=== PATIENT | male | born 1970 | race Caucasian/White ===

== ENCOUNTER 2021-01-28 17:27 | Inpatient (IN) | payer MEDICARE, SELFPAY ==
[~2021-01-28 17:27] MED LIST: Iopamidol-370 76% 500 ML 1 ML ONE
[2021-01-28] MEDS ORDERED: Nitroglycerin 0.4 MG TAB 1 EACH ONE (17:36)
[2021-01-28] MEDS ORDERED: Magnesium 2 GM/50 ML BAG (IN WATER) ONE (17:36)
[2021-01-28 17:47] LABS: Actual Bicarbonate (HCO3a) 54.5 mEq/L (22-28); Analyzer IN Cardio ER; Base Excess (BEa) 19.4 mEq/L (-2.0 to +3.0); Calcium, Ionized (arterial) 1.23 mmol/L (1.12-1.30); Carboxyhemoglobin (COHb) 1.4 gm% (0.0-3.0); Hemoglobin (Hb) 14.7 g/dL (14.0-18.0); O2 Tension (PaO2), arterial 68.1 mmHg (80.0-100.0); Potassium - ABG Lab 4.69 mmol/L (3.70-5.30)
[2021-01-28 17:48] LABS: CO2 Tension 137.8 mmHg (35.0-45.0); Puncture Site RRA; pH, Arterial 7.22 (7.35-7.45)
[2021-01-28] MEDS ORDERED: Ketamine 50 MG/ML (10ML VIAL) ONE (17:53)
[2021-01-28] MEDS ORDERED: Rocuronium Bromide 10 MG/ML (10ML VIAL) ONE (17:53)
[2021-01-28 18:13] LABS: #Eosinphils 0.1 thou/uL (0.0-0.7); #Lymphocytes 0.9 thou/uL (1.20-3.40); #Monocytes 0.9 thou/uL (0.11-0.59); #Neutrophils 8.9 thou/uL (1.40-6.50); %Basophils 0.2 % (0.0-1.0); %Eosinophils 0.7 % (0.0-10.0); %Monocytes 8.6 % (0.0-10.0); %Neutrophils 82.5 % (42.0-75.0); Mean Corpuscular HGB CONC 29.8 g/dL (32.0-36.0); Mean Corpuscular Hemoglobin 27.5 pg (27.0-31.0); Mean Corpuscular Volume 92.2 fL (78.0-98.0); Mean Platelet Volume 8.7 fL (7.4-10.4); Platelet Count 145 thou/uL (130-400); White Blood Cell (WBC) Count 10.7 thou/uL (4.8-10.8)
[2021-01-28 18:16] LABS: ALT (SGPT) 33 U/L (8-55); AST (SGOT) 25 U/L (5-34); Albumin 4.4 g/dL (3.5-5.0); Alkaline Phosphatase 93 U/L (40-110); BUN (Urea Nitrogen) 21 mg/dL (8.9-20.6); CK (CPK) 38 U/L (30-200); Calc. Creatinine Clearance 0 mL/min (70-130); Calcium 10.2 mg/dL (7.8-10.44); Globulin 3.5 g/dL (2.4-3.5); Glucose 96 mg/dL (70-105); Protein, Total 7.9 g/dL (6.0-8.3)
[2021-01-28 18:25] LABS: Anion Gap 22 mmol/L (10-20); Chloride 81 mmol/L (98-107); Potassium 4.7 mmol/L (3.5-5.1); Sodium 144 mmol/L (136-145)
[2021-01-28] MEDS ORDERED: Albuterol Sulfate 2.5 mg/3 ml Neb ONE (18:29)
[2021-01-28] MEDS ORDERED: cefTRIAXone\\ROCEPHIN 2 GM VIAL ONE (18:31)
[2021-01-28] MEDS ORDERED: Azithromycin 500 MG VIAL ONE (18:31)
[2021-01-28 18:36] LABS: Carbon Dioxide 46 mmol/L (22-29)
[2021-01-28 18:44] LABS: Actual Bicarbonate (HCO3a) 44.1 mEq/L (22-28); Analyzer IN Cardio ER; Base Excess (BEa) 16.7 mEq/L (-2.0 to +3.0); Calcium, Ionized (arterial) 1.16 mmol/L (1.12-1.30); Carboxyhemoglobin (COHb) 1.2 gm% (0.0-3.0); O2 Tension (PaO2), arterial 184.1 mmHg (80.0-100.0); Potassium - ABG Lab 4.63 mmol/L (3.70-5.30); pH, Arterial 7.46 (7.35-7.45)
[2021-01-28 18:44] LABS: Bacteria/HPF None Seen HPF (None Seen); Bilirubin Negative (Negative); Blood, Urine 1+ (Negative); Clarity Clear (Clear); Glucose, Urine (Dipstick) Normal (Negative); Ketone, Urine 150 mg/dL (Negative); Leukocyte Negative Leu/uL (Negative); Nitrite Negative (Negative); Protein, Urine (Dipstick) 300 mg/dL (Neg-Trace); Specific Gravity, Urine 1.022 (1.002-1.036); Squamous Epithelial None Seen HPF (0-3); Urobilinogen Normal mg/dL (Less than 2)
[2021-01-28] MEDS ORDERED: fentaNYL Citrate/PF 2,000 MCG in Sodium Chloride 0.9% 60 ML IV SCH (19:00)
[2021-01-28 19:11] LABS: CO2 Tension 64.1 mmHg (35.0-45.0)
[2021-01-28 19:12] LABS: ALV-art Gradient 163.575 mmHg (0-20); Puncture Site LRA
[2021-01-28] MEDS ORDERED: Lorazepam 2 MG/ML VIAL ONE (19:25)
[2021-01-28 19:26] LABS: SARS-CoV-2 NAA Rapid Test Not Detected (NotDetected)
[2021-01-28] MEDS ORDERED: Morphine 2 MG/ML VIAL ONE (20:01)
[2021-01-28] MEDS ORDERED: Propofol 1,000 MG/100 ML VIAL IV ONE (20:09)
[2021-01-28 21:16] LABS: Troponin I 0.027 ng/mL (< 0.028)
[2021-01-28] MEDS ORDERED: Ondansetron PF 4 MG/2 ML Vial IVP PRN (21:27)
[2021-01-28] MEDS ORDERED: Acetaminophen 325 MG Suppository ONE (21:28)
[2021-01-28] MEDS ORDERED: Acetaminophen 650 MG Suppository ONE (21:28)
[2021-01-28] MEDS ORDERED: Midazolam HCl 5 mg/ml Vial ONE (21:30)
[2021-01-28] MEDS ORDERED: Albuterol Sulfate 2.5 mg/3 ml Neb NEB PRN (21:34)
[2021-01-28 21:54] LABS: Anion Gap 24 mmol/L (10-20); BUN (Urea Nitrogen) 20 mg/dL (8.4-25.7); Calc. Creatinine Clearance 0 mL/min (70-130); Calcium 9.1 mg/dL (7.8-10.44); Carbon Dioxide 33 mmol/L (22-29); Chloride 90 mmol/L (98-107); Glucose 116 mg/dL (70-105); Potassium 4.8 mmol/L (3.5-5.1); Sodium 142 mmol/L (136-145)
[2021-01-28] MEDS ORDERED: Propofol BOLUS 1,000 MG/100 ML VIAL IV PRN (23:00)
[2021-01-28] MEDS ORDERED: Fentanyl BOLUS 250 ML IVPB PRN (23:00)
[2021-01-28] MEDS ORDERED: DISCONTINUE PREVIOUS NARCOTIC PAIN MEDICATIONS AND BENZODIAZEPINES FS SCH (23:00)
[2021-01-28] MEDS ORDERED: Morphine 2 MG/ML VIAL SLOW IVP PRN (23:00)
[2021-01-28] MEDS ORDERED: VANCOMYCIN 1.75 GM/350 ML BAG 1.75 GM in Premix Bag 1 BAG IVPB SCH (23:30)
[2021-01-28] MEDS: methylPREDNISolone Sod Succ 40 MG VIAL IVP SCH (23:37)
[2021-01-28] MEDS ORDERED: Vancomycin 1.5 GRAM/300 ML BAG 1.5 GM in Premix Bag 1 BAG IVPB SCH (23:59)
[2021-01-29 00:33] LABS: Troponin I 0.033 ng/mL (< 0.028)
[2021-01-29] MEDS: Propofol 1,000 MG/100 ML VIAL IV PRN ×5 (01:05→22:14)
[2021-01-29] MEDS ORDERED: Fentanyl CADD 100 ML ONE ×3 (02:19→20:23)
[2021-01-29] MEDS: Fentanyl CADD 100 ML IV SCH ×2 (02:23→20:50)
[2021-01-29 04:49] LABS: #Lymphocytes 0.4 thou/uL (1.20-3.40); #Monocytes 0.3 thou/uL (0.11-0.59); #Neutrophils 5.5 thou/uL (1.40-6.50); %Eosinophils 0.1 % (0.0-10.0); %Lymphocytes 6.5 % (21.0-51.0); %Monocytes 5.1 % (0.0-10.0); %Neutrophils 88.3 % (42.0-75.0); Hemoglobin 11.4 g/dL (14.0-18.0); Mean Corpuscular HGB CONC 29.8 g/dL (32.0-36.0); Mean Corpuscular Hemoglobin 27.1 pg (27.0-31.0); Mean Corpuscular Volume 90.9 fL (78.0-98.0); Mean Platelet Volume 9.2 fL (7.4-10.4); Platelet Count 110 thou/uL (130-400); Platelet Morphology Comment Appears Decreased; RBC Distribution Width 11.8 % (11.5-14.5); Red Blood Cell (RBC) Count 4.19 mill/uL (4.70-6.10); White Blood Cell (WBC) Count 6.2 thou/uL (4.8-10.8)
[2021-01-29] MEDS: methylPREDNISolone Sod Succ 40 MG VIAL IVP SCH ×4 (05:59→23:14)
[2021-01-29] MEDS ORDERED: Furosemide 20 MG/2 ML VIAL SLOW IVP SCH (06:00)
[2021-01-29] MEDS: Acetaminophen 325 MG TAB PO PRN (06:13)
[2021-01-29 06:54] LABS: BUN (Urea Nitrogen) 19 mg/dL (8.4-25.7); Calc. Creatinine Clearance 135 mL/min (70-130); Calcium 9.1 mg/dL (7.8-10.44); Glucose 128 mg/dL (70-105)
[2021-01-29 07:03] LABS: Anion Gap 16 mmol/L (10-20); Carbon Dioxide 38 mmol/L (22-29); Chloride 91 mmol/L (98-107); Potassium 3.7 mmol/L (3.5-5.1); Sodium 141 mmol/L (136-145)
[2021-01-29] MEDS: Lorazepam 2 MG/ML VIAL SLOW IVP PRN ×6 (07:27→22:14)
[2021-01-29] MEDS ORDERED: Famotidine 20 MG TAB PO SCH (09:00)
[2021-01-29] MEDS ORDERED: Electrolyte Replacement Protocol 1 EACH FS PRN (09:37)
[2021-01-29] MEDS: Vecuronium 10 MG VIAL IVP PRN ×4 (10:08→22:14)
[2021-01-29] MEDS: Sodium Chloride 0.9% 1,000 ML IV SCH (10:08)
[2021-01-29] MEDS: Cefepime 1 GM in Sodium Chloride 0.9% 100 ML IVPB SCH ×2 (12:05→23:14)
[2021-01-29] MEDS: Vancomycin 1.5 GRAM/300 ML BAG 1.5 GM in Premix Bag 1 BAG IVPB SCH ×2 (12:34→23:14)
[2021-01-29] MEDS ORDERED: cefTRIAXone\\ROCEPHIN 2 GM in Sodium Chloride 0.9% 100 ML IVPB SCH (18:00)
[2021-01-29] MEDS: Budesonide 0.5 MG/2 ML NEB NEB SCH (18:41)
[2021-01-29] MEDS ORDERED: Azithromycin 500 MG in Sodium Chloride 0.9% 250 ML 250 ML IVPB SCH (20:00)
[2021-01-29] MEDS: Carvedilol 3.125 MG TAB PO SCH (21:01)
[2021-01-30] MEDS: Vecuronium 10 MG VIAL IVP PRN (01:48)
[2021-01-30] MEDS: Lorazepam 2 MG/ML VIAL SLOW IVP PRN ×2 (01:48→04:45)
[2021-01-30] MEDS: Sodium Chloride 0.9% 1,000 ML IV SCH ×3 (01:56→22:03)
[2021-01-30] MEDS: Propofol 1,000 MG/100 ML VIAL IV PRN ×5 (03:30→22:03)
[2021-01-30 04:28] LABS: #Lymphocytes 0.3 thou/uL (1.20-3.40); #Monocytes 0.7 thou/uL (0.11-0.59); #Neutrophils 11.3 thou/uL (1.40-6.50); %Eosinophils 0.1 % (0.0-10.0); %Lymphocytes 2.1 % (21.0-51.0); %Monocytes 5.5 % (0.0-10.0); %Neutrophils 92.2 % (42.0-75.0); Mean Corpuscular HGB CONC 30.6 g/dL (32.0-36.0); Mean Corpuscular Hemoglobin 27.1 pg (27.0-31.0); Mean Corpuscular Volume 88.7 fL (78.0-98.0); Mean Platelet Volume 9.2 fL (7.4-10.4); Platelet Count 108 thou/uL (130-400); RBC Distribution Width 12.1 % (11.5-14.5); White Blood Cell (WBC) Count 12.2 thou/uL (4.8-10.8)
[2021-01-30 05:01] LABS: BUN (Urea Nitrogen) 17 mg/dL (8.4-25.7); Calc. Creatinine Clearance 153 mL/min (70-130); Calcium 9.2 mg/dL (7.8-10.44); Glucose 119 mg/dL (70-105)
[2021-01-30 05:10] LABS: Anion Gap 12 mmol/L (10-20); Carbon Dioxide 38 mmol/L (22-29); Chloride 96 mmol/L (98-107); Potassium 3.3 mmol/L (3.5-5.1); Sodium 143 mmol/L (136-145)
[2021-01-30] MEDS: methylPREDNISolone Sod Succ 40 MG VIAL IVP SCH ×3 (06:02→17:46)
[2021-01-30] MEDS ORDERED: Fentanyl CADD 100 ML ONE (06:15)
[2021-01-30] MEDS: Fentanyl CADD 100 ML IV SCH ×2 (06:31→17:14)
[2021-01-30] MEDS: Potassium Chloride 20 MEQ in Premix Bag 1 BAG IVPB SCH ×2 (06:36→08:13)
[2021-01-30] MEDS: Budesonide 0.5 MG/2 ML NEB NEB SCH ×2 (07:10→18:30)
[2021-01-30 07:22] LABS: Actual Bicarbonate (HCO3a) 35.8 mEq/L (22-28); Base Excess (BEa) 11.6 mEq/L (-2.0 to +3.0); CO2 Tension 44.6 mmHg (35.0-45.0); Carboxyhemoglobin (COHb) 1.3 gm% (0.0-3.0); Hemoglobin (Hb) 12.5 g/dL (14.0-18.0); O2 Tension (PaO2), arterial 73.8 mmHg (80.0-100.0); Potassium - ABG Lab 3.36 mmol/L (3.70-5.30); pH, Arterial 7.52 (7.35-7.45)
[2021-01-30 07:51] LABS: Puncture Site RRA
[2021-01-30] MEDS: Carvedilol 3.125 MG TAB PO SCH ×2 (08:13→20:29)
[2021-01-30] MEDS ORDERED: Pancrelipase DR 12,000 1 CAP FS PRN (10:15)
[2021-01-30] MEDS ORDERED: Sodium Bicarbonate Tab 325 MG TAB PER TUBE PRN (10:15)
[2021-01-30] MEDS: Pantoprazole 40 MG GRANULES PACKET PO SCH ×2 (11:18→20:29)
[2021-01-30] MEDS: Cefepime 1 GM in Sodium Chloride 0.9% 100 ML IVPB SCH (11:30)
[2021-01-30] MEDS ORDERED: Furosemide 40 MG/4 ML VIAL SLOW IVP SCH (11:30)
[2021-01-30] MEDS: Vancomycin 1.5 GRAM/300 ML BAG 1.5 GM in Premix Bag 1 BAG IVPB SCH (11:44)
[2021-01-30] MEDS: FLUoxetine HCl 20 MG/5 ML UDCUP PER TUBE SCH (11:55)
[2021-01-30] MEDS ORDERED: Potassium Chloride 20 MEQ in Premix Bag 1 BAG IVPB SCH (14:15)
[2021-01-31] MEDS: Cefepime 1 GM in Sodium Chloride 0.9% 100 ML IVPB SCH (00:05)
[2021-01-31] MEDS: methylPREDNISolone Sod Succ 40 MG VIAL IVP SCH ×5 (00:06→23:54)
[2021-01-31] MEDS: Vancomycin 1.5 GRAM/300 ML BAG 1.5 GM in Premix Bag 1 BAG IVPB SCH (00:17)
[2021-01-31] MEDS ORDERED: Fentanyl CADD 100 ML ONE ×2 (01:35→19:53)
[2021-01-31] MEDS: Propofol 1,000 MG/100 ML VIAL IV PRN ×4 (02:39→23:14)
[2021-01-31 04:20] LABS: #Lymphocytes 0.3 thou/uL (1.20-3.40); #Monocytes 0.5 thou/uL (0.11-0.59); #Neutrophils 12.4 thou/uL (1.40-6.50); %Basophils 0.1 % (0.0-1.0); %Eosinophils 0.1 % (0.0-10.0); %Monocytes 3.5 % (0.0-10.0); %Neutrophils 94.4 % (42.0-75.0); Hemoglobin 11.8 g/dL (14.0-18.0); Mean Corpuscular HGB CONC 30.6 g/dL (32.0-36.0); Mean Corpuscular Hemoglobin 27.2 pg (27.0-31.0); Mean Platelet Volume 9.4 fL (7.4-10.4); Platelet Count 110 thou/uL (130-400); RBC Distribution Width 12.5 % (11.5-14.5); Red Blood Cell (RBC) Count 4.35 mill/uL (4.70-6.10); White Blood Cell (WBC) Count 13.1 thou/uL (4.8-10.8)
[2021-01-31 04:27] LABS: BUN (Urea Nitrogen) 23 mg/dL (8.4-25.7); Calc. Creatinine Clearance 169 mL/min (70-130); Calcium 9.1 mg/dL (7.8-10.44); Glucose 118 mg/dL (70-105)
[2021-01-31 04:36] LABS: Anion Gap 14 mmol/L (10-20); Carbon Dioxide 36 mmol/L (22-29); Chloride 97 mmol/L (98-107); Potassium 4.2 mmol/L (3.5-5.1); Sodium 143 mmol/L (136-145)
[2021-01-31 07:15] LABS: Actual Bicarbonate (HCO3a) 40.2 mEq/L (22-28); Base Excess (BEa) 11.5 mEq/L (-2.0 to +3.0); Calcium, Ionized (arterial) 1.25 mmol/L (1.12-1.30); Hemoglobin (Hb) 12.7 g/dL (14.0-18.0); O2 Tension (PaO2), arterial 75.6 mmHg (80.0-100.0); Potassium - ABG Lab 4.13 mmol/L (3.70-5.30); pH, Arterial 7.35 (7.35-7.45)
[2021-01-31] MEDS: Budesonide 0.5 MG/2 ML NEB NEB SCH ×2 (07:18→19:36)
[2021-01-31 07:19] LABS: Vancomycin, Trough 11.5 ug/mL
[2021-01-31 07:20] LABS: CO2 Tension 75.3 mmHg (35.0-45.0)
[2021-01-31 07:21] LABS: ALV-art Gradient 115.475 mmHg (0-20); Puncture Site RRA
[2021-01-31] MEDS: Pantoprazole 40 MG GRANULES PACKET PO SCH (08:40)
[2021-01-31] MEDS: Carvedilol 3.125 MG TAB PO SCH ×2 (08:40→20:07)
[2021-01-31] MEDS: FLUoxetine HCl 20 MG/5 ML UDCUP PER TUBE SCH (08:41)
[2021-01-31] MEDS: cefTRIAXone\\ROCEPHIN 1 GM in Sodium Chloride 0.9% 100 ML IVPB SCH (10:22)
[2021-01-31] MEDS: Bacteriostatic Water 30 ML VIAL FS PRN (11:28)
[2021-01-31] MEDS ORDERED: Saccharomyces boulardii 250 MG CAP PER TUBE SCH ×2 (11:45→12:00)
[2021-01-31] MEDS: Saccharomyces boulardii 250 MG CAP PER TUBE SCH (12:00)
[2021-01-31] MEDS ORDERED: VANCOMYCIN 1.75 GM/350 ML BAG 1.75 GM in Premix Bag 1 BAG IVPB SCH (12:00)
[2021-01-31] MEDS: Lorazepam 2 MG/ML VIAL SLOW IVP PRN (23:13)
[2021-02-01 04:38] LABS: BUN (Urea Nitrogen) 28 mg/dL (8.4-25.7); Calc. Creatinine Clearance 166 mL/min (70-130); Calcium 9.1 mg/dL (7.8-10.44); Glucose 124 mg/dL (70-105)
[2021-02-01 04:48] LABS: Anion Gap 15 mmol/L (10-20); Carbon Dioxide 34 mmol/L (22-29); Chloride 99 mmol/L (98-107); Potassium 4.6 mmol/L (3.5-5.1); Sodium 143 mmol/L (136-145)
[2021-02-01 04:57] LABS: #Lymphocytes 0.3 thou/uL (1.20-3.40); #Monocytes 0.4 thou/uL (0.11-0.59); #Neutrophils 9.9 thou/uL (1.40-6.50); %Eosinophils 0.1 % (0.0-10.0); %Lymphocytes 2.5 % (21.0-51.0); %Monocytes 3.6 % (0.0-10.0); %Neutrophils 93.8 % (42.0-75.0); Hemoglobin 11.5 g/dL (14.0-18.0); Mean Corpuscular Hemoglobin 26.8 pg (27.0-31.0); Mean Corpuscular Volume 89.5 fL (78.0-98.0); Mean Platelet Volume 9.1 fL (7.4-10.4); Platelet Count 117 thou/uL (130-400); Platelet Morphology Comment Appears Decreased; RBC Distribution Width 12.6 % (11.5-14.5); RBC Morphology Normal; White Blood Cell (WBC) Count 10.6 thou/uL (4.8-10.8)
[2021-02-01] MEDS: methylPREDNISolone Sod Succ 40 MG VIAL IVP SCH ×4 (06:19→23:09)
[2021-02-01] MEDS: Budesonide 0.5 MG/2 ML NEB NEB SCH ×2 (07:22→17:31)
[2021-02-01 07:24] LABS: Actual Bicarbonate (HCO3a) 40.6 mEq/L (22-28); Base Excess (BEa) 12.1 mEq/L (-2.0 to +3.0); Calcium, Ionized (arterial) 1.26 mmol/L (1.12-1.30); Carboxyhemoglobin (COHb) 0.7 gm% (0.0-3.0); Hemoglobin (Hb) 12.3 g/dL (14.0-18.0); O2 Tension (PaO2), arterial 81.8 mmHg (80.0-100.0); Potassium - ABG Lab 4.55 mmol/L (3.70-5.30); pH, Arterial 7.35 (7.35-7.45)
[2021-02-01 07:39] LABS: CO2 Tension 74.6 mmHg (35.0-45.0); Puncture Site RRA
[2021-02-01] MEDS ORDERED: Pantoprazole 40 MG GRANULES PACKET PO SCH (09:00)
[2021-02-01] MEDS ORDERED: DC Sedation Protocol FS ONE (09:09)
[2021-02-01] MEDS: Sodium Chloride 0.9% 1,000 ML IV SCH ×2 (09:49→21:10)
[2021-02-01] MEDS: Carvedilol 3.125 MG TAB PO SCH ×2 (09:49→20:55)
[2021-02-01] MEDS: FLUoxetine HCl 20 MG CAP PO SCH (09:49)
[2021-02-01] MEDS: FLUoxetine HCl 20 MG/5 ML UDCUP PER TUBE SCH (09:57)
[2021-02-01] MEDS: cefTRIAXone\\ROCEPHIN 1 GM in Sodium Chloride 0.9% 100 ML IVPB SCH (10:19)
[2021-02-01] MEDS: Bacteriostatic Water 30 ML VIAL FS PRN ×2 (12:27→18:14)
[2021-02-01] MEDS: Saccharomyces boulardii 250 MG CAP PER TUBE SCH (12:27)
[2021-02-01] MEDS ORDERED: Haloperidol Lactate 5 MG/ML VIAL SLOW IVP PRN (16:29)
[2021-02-01] MEDS ORDERED: Morphine 4 MG/ML VIAL ONE (16:37)
[2021-02-01] MEDS ORDERED: Midazolam HCl 2 mg/2 ml Vial ONE (16:37)
[2021-02-01] MEDS ORDERED: Propofol 1,000 MG/100 ML VIAL IV ONE (16:45)
[2021-02-01 17:22] LABS: Actual Bicarbonate (HCO3a) 43.7 mEq/L (22-28); Base Excess (BEa) 11.8 mEq/L (-2.0 to +3.0); Calcium, Ionized (arterial) 1.28 mmol/L (1.12-1.30); Carboxyhemoglobin (COHb) 0.9 gm% (0.0-3.0); O2 Tension (PaO2), arterial 73.2 mmHg (80.0-100.0); Potassium - ABG Lab 4.66 mmol/L (3.70-5.30)
[2021-02-01 17:25] LABS: Actual Bicarbonate (HCO3a) 41.1 mEq/L (22-28); Base Excess (BEa) 7.1 mEq/L (-2.0 to +3.0); CO2 Tension 122.3 mmHg (35.0-45.0); Calcium, Ionized (arterial) 1.31 mmol/L (1.12-1.30); Hemoglobin (Hb) 14.7 g/dL (14.0-18.0); O2 Tension (PaO2), arterial 89.8 mmHg (80.0-100.0); Potassium - ABG Lab 4.63 mmol/L (3.70-5.30); Puncture Site RBA; pH, Arterial 7.14 (7.35-7.45)
[2021-02-01 17:27] LABS: CO2 Tension 102.5 mmHg (35.0-45.0); Puncture Site RRA; pH, Arterial 7.25 (7.35-7.45)
[2021-02-01 17:28] LABS: ALV-art Gradient 42.525 mmHg (0-20)
[2021-02-01 17:28] LABS: ALV-art Gradient 155.175 mmHg (0-20)
[2021-02-01] MEDS ORDERED: Propofol BOLUS 1,000 MG/100 ML VIAL IV PRN (18:00)
[2021-02-01] MEDS: Cefepime 1 GM in Sodium Chloride 0.9% 100 ML IVPB SCH (20:54)
[2021-02-01] MEDS: AcetaZOLAMIDE 250 MG TAB PO SCH (20:55)
[2021-02-01] MEDS: traZODone HCl 50 MG TAB PO SCH (20:55)
[2021-02-01] MEDS: Propofol 1,000 MG/100 ML VIAL IV PRN (23:09)
[2021-02-02 03:54] LABS: #Lymphocytes 0.4 thou/uL (1.20-3.40); #Monocytes 0.6 thou/uL (0.11-0.59); #Neutrophils 7.2 thou/uL (1.40-6.50); %Lymphocytes 4.3 % (21.0-51.0); %Monocytes 7.6 % (0.0-10.0); %Neutrophils 88.1 % (42.0-75.0); Hemoglobin 11.7 g/dL (14.0-18.0); Mean Corpuscular HGB CONC 30.3 g/dL (32.0-36.0); Mean Corpuscular Hemoglobin 26.8 pg (27.0-31.0); Mean Corpuscular Volume 88.4 fL (78.0-98.0); Mean Platelet Volume 8.9 fL (7.4-10.4); Platelet Count 127 thou/uL (130-400); RBC Distribution Width 12.9 % (11.5-14.5); Red Blood Cell (RBC) Count 4.37 mill/uL (4.70-6.10); White Blood Cell (WBC) Count 8.1 thou/uL (4.8-10.8)
[2021-02-02] MEDS: Propofol 1,000 MG/100 ML VIAL IV PRN ×3 (03:58→19:29)
[2021-02-02 04:28] LABS: Anion Gap 10 mmol/L (10-20); BUN (Urea Nitrogen) 29 mg/dL (8.4-25.7); Calc. Creatinine Clearance 0 mL/min (70-130); Calcium 9.3 mg/dL (7.8-10.44); Carbon Dioxide 33 mmol/L (22-29); Chloride 103 mmol/L (98-107); Glucose 113 mg/dL (70-105); Potassium 3.9 mmol/L (3.5-5.1); Sodium 142 mmol/L (136-145)
[2021-02-02] MEDS: methylPREDNISolone Sod Succ 40 MG VIAL IVP SCH ×4 (05:15→23:53)
[2021-02-02 08:10] LABS: Actual Bicarbonate (HCO3a) 27.7 mEq/L (22-28); CO2 Tension 38.5 mmHg (35.0-45.0); Calcium, Ionized (arterial) 1.25 mmol/L (1.12-1.30); Carboxyhemoglobin (COHb) 0.5 gm% (0.0-3.0); Hemoglobin (Hb) 12.3 g/dL (14.0-18.0); O2 Tension (PaO2), arterial 83.8 mmHg (80.0-100.0); Potassium - ABG Lab 3.94 mmol/L (3.70-5.30); pH, Arterial 7.48 (7.35-7.45)
[2021-02-02] MEDS: Budesonide 0.5 MG/2 ML NEB NEB SCH (08:11)
[2021-02-02 08:14] LABS: ALV-art Gradient 153.275 mmHg (0-20); Puncture Site RRA
[2021-02-02] MEDS: Cefepime 1 GM in Sodium Chloride 0.9% 100 ML IVPB SCH ×2 (09:56→21:20)
[2021-02-02] MEDS: FLUoxetine HCl 20 MG CAP PO SCH (09:56)
[2021-02-02] MEDS: Carvedilol 3.125 MG TAB PO SCH ×2 (09:57→21:21)
[2021-02-02] MEDS: AcetaZOLAMIDE 250 MG TAB PO SCH ×2 (10:07→21:21)
[2021-02-02] MEDS: Saccharomyces boulardii 250 MG CAP PER TUBE SCH (12:28)
[2021-02-02] MEDS: Sodium Chloride 0.9% 1,000 ML IV SCH (19:27)
[2021-02-02] MEDS: traZODone HCl 50 MG TAB PO SCH (21:21)
[2021-02-03] MEDS: Propofol 1,000 MG/100 ML VIAL IV PRN (03:13)
[2021-02-03 03:53] LABS: #Lymphocytes 0.3 thou/uL (1.20-3.40); #Monocytes 0.7 thou/uL (0.11-0.59); #Neutrophils 9.5 thou/uL (1.40-6.50); %Basophils 0.2 % (0.0-1.0); %Eosinophils 0.1 % (0.0-10.0); %Lymphocytes 2.6 % (21.0-51.0); %Monocytes 6.2 % (0.0-10.0); Hemoglobin 12.4 g/dL (14.0-18.0); Mean Corpuscular HGB CONC 30.8 g/dL (32.0-36.0); Mean Corpuscular Hemoglobin 26.7 pg (27.0-31.0); Mean Corpuscular Volume 86.7 fL (78.0-98.0); Mean Platelet Volume 8.5 fL (7.4-10.4); Platelet Count 133 thou/uL (130-400); RBC Distribution Width 13.1 % (11.5-14.5); Red Blood Cell (RBC) Count 4.66 mill/uL (4.70-6.10); White Blood Cell (WBC) Count 10.5 thou/uL (4.8-10.8)
[2021-02-03 04:03] LABS: Anion Gap 10 mmol/L (10-20); BUN (Urea Nitrogen) 27 mg/dL (8.4-25.7); Calc. Creatinine Clearance 152 mL/min (70-130); Calcium 9.3 mg/dL (7.8-10.44); Carbon Dioxide 29 mmol/L (22-29); Chloride 106 mmol/L (98-107); Glucose 142 mg/dL (70-105); Potassium 4.1 mmol/L (3.5-5.1); Sodium 141 mmol/L (136-145)
[2021-02-03] MEDS: methylPREDNISolone Sod Succ 40 MG VIAL IVP SCH ×3 (05:20→17:39)
[2021-02-03] MEDS ORDERED: hydrALAZINE 20 MG/ML VIAL SLOW IVP PRN (07:25)
[2021-02-03 07:56] LABS: Actual Bicarbonate (HCO3a) 27.4 mEq/L (22-28); Base Excess (BEa) 1.6 mEq/L (-2.0 to +3.0); CO2 Tension 47.7 mmHg (35.0-45.0); Carboxyhemoglobin (COHb) 0.9 gm% (0.0-3.0); Hemoglobin (Hb) 13.4 g/dL (14.0-18.0); O2 Tension (PaO2), arterial 83.9 mmHg (80.0-100.0); Potassium - ABG Lab 4.18 mmol/L (3.70-5.30); pH, Arterial 7.38 (7.35-7.45)
[2021-02-03 07:57] LABS: ALV-art Gradient 106.025 mmHg (0-20); Puncture Site RRA
[2021-02-03] MEDS: Cefepime 1 GM in Sodium Chloride 0.9% 100 ML IVPB SCH ×2 (09:45→20:19)
[2021-02-03] MEDS: Lorazepam 2 MG/ML VIAL SLOW IVP PRN (09:50)
[2021-02-03] MEDS: AcetaZOLAMIDE 250 MG TAB PO SCH (09:51)
[2021-02-03] MEDS: Carvedilol 3.125 MG TAB PO SCH ×2 (09:52→20:20)
[2021-02-03] MEDS: Pantoprazole 40 MG GRANULES PACKET PO SCH (09:52)
[2021-02-03] MEDS: FLUoxetine HCl 20 MG CAP PO SCH (09:52)
[2021-02-03] MEDS: Saccharomyces boulardii 250 MG CAP PER TUBE SCH (13:06)
[2021-02-03] MEDS: hydrOXYzine 25 MG TAB PO PRN (13:44)
[2021-02-03] MEDS: Sodium Chloride 0.9% 1,000 ML IV SCH (15:15)
[2021-02-03] MEDS: traZODone HCl 50 MG TAB PO SCH (20:20)
[2021-02-04] MEDS: methylPREDNISolone Sod Succ 40 MG VIAL IVP SCH ×2 (01:00→06:34)
[2021-02-04 04:03] LABS: #Lymphocytes 0.4 thou/uL (1.20-3.40); #Monocytes 1.4 thou/uL (0.11-0.59); #Neutrophils 11.6 thou/uL (1.40-6.50); %Basophils 0.1 % (0.0-1.0); %Eosinophils 0.2 % (0.0-10.0); %Monocytes 10.6 % (0.0-10.0); %Neutrophils 86.2 % (42.0-75.0); Hemoglobin 12.9 g/dL (14.0-18.0); Mean Corpuscular HGB CONC 30.7 g/dL (32.0-36.0); Mean Corpuscular Hemoglobin 26.3 pg (27.0-31.0); Mean Corpuscular Volume 85.8 fL (78.0-98.0); Mean Platelet Volume 8.6 fL (7.4-10.4); Platelet Count 170 thou/uL (130-400); RBC Distribution Width 13.5 % (11.5-14.5); White Blood Cell (WBC) Count 13.5 thou/uL (4.8-10.8)
[2021-02-04 04:24] LABS: Anion Gap 11 mmol/L (10-20); BUN (Urea Nitrogen) 28 mg/dL (8.4-25.7); Calc. Creatinine Clearance 165 mL/min (70-130); Calcium 9.2 mg/dL (7.8-10.44); Carbon Dioxide 24 mmol/L (22-29); Chloride 108 mmol/L (98-107); Glucose 115 mg/dL (70-105); Potassium 3.8 mmol/L (3.5-5.1); Sodium 139 mmol/L (136-145)
[2021-02-04] MEDS: Lorazepam 2 MG/ML VIAL SLOW IVP PRN ×4 (04:36→22:02)
[2021-02-04 06:49] LABS: Actual Bicarbonate (HCO3a) 23.6 mEq/L (22-28); Base Excess (BEa) -0.8 mEq/L (-2.0 to +3.0); CO2 Tension 38.4 mmHg (35.0-45.0); Calcium, Ionized (arterial) 1.27 mmol/L (1.12-1.30); Carboxyhemoglobin (COHb) 0.8 gm% (0.0-3.0); Hemoglobin (Hb) 14.3 g/dL (14.0-18.0); O2 Tension (PaO2), arterial 75.6 mmHg (80.0-100.0); Potassium - ABG Lab 3.84 mmol/L (3.70-5.30); pH, Arterial 7.41 (7.35-7.45)
[2021-02-04 07:09] LABS: Puncture Site RRA
[2021-02-04] MEDS: FLUoxetine HCl 20 MG CAP PO SCH (09:00)
[2021-02-04] MEDS: Carvedilol 3.125 MG TAB PO SCH ×2 (09:00→20:08)
[2021-02-04] MEDS: Pantoprazole 40 MG GRANULES PACKET PO SCH (09:00)
[2021-02-04] MEDS: AcetaZOLAMIDE 250 MG TAB PO SCH (09:00)
[2021-02-04] MEDS: Cefepime 1 GM in Sodium Chloride 0.9% 100 ML IVPB SCH ×2 (09:01→20:07)
[2021-02-04] MEDS ORDERED: Mineral Oil ENEMA PR SCH (11:15)
[2021-02-04] MEDS: Saccharomyces boulardii 250 MG CAP PER TUBE SCH (11:56)
[2021-02-04] MEDS: Furosemide 40 MG/4 ML VIAL SLOW IVP SCH (13:26)
[2021-02-04] MEDS: Potassium Bicarbonate/Cit Ac 20 MEQ TAB PO SCH (16:13)
[2021-02-04] MEDS: traZODone HCl 50 MG TAB PO SCH (20:08)
[2021-02-04] MEDS: Docusate Sodium 100 MG/10 ML UDCUP PO SCH (20:08)
[2021-02-05] MEDS: Lorazepam 2 MG/ML VIAL SLOW IVP PRN (02:17)
[2021-02-05] MEDS: Propofol 1,000 MG/100 ML VIAL IV PRN (03:27)
[2021-02-05 04:16] LABS: #Eosinphils 0.1 thou/uL (0.0-0.7); #Lymphocytes 0.3 thou/uL (1.20-3.40); #Neutrophils 10.7 thou/uL (1.40-6.50); %Eosinophils 0.6 % (0.0-10.0); %Lymphocytes 2.7 % (21.0-51.0); %Monocytes 7.8 % (0.0-10.0); %Neutrophils 88.9 % (42.0-75.0); Hemoglobin 12.9 g/dL (14.0-18.0); Mean Corpuscular HGB CONC 30.4 g/dL (32.0-36.0); Mean Corpuscular Hemoglobin 26.4 pg (27.0-31.0); Mean Corpuscular Volume 86.7 fL (78.0-98.0); Platelet Count 147 thou/uL (130-400); RBC Distribution Width 13.8 % (11.5-14.5); Red Blood Cell (RBC) Count 4.91 mill/uL (4.70-6.10); White Blood Cell (WBC) Count 12.1 thou/uL (4.8-10.8)
[2021-02-05 04:34] LABS: Anion Gap 12 mmol/L (10-20); BUN (Urea Nitrogen) 37 mg/dL (8.4-25.7); Calc. Creatinine Clearance 150 mL/min (70-130); Calcium 9.1 mg/dL (7.8-10.44); Carbon Dioxide 27 mmol/L (22-29); Chloride 107 mmol/L (98-107); Glucose 88 mg/dL (70-105); Potassium 3.6 mmol/L (3.5-5.1); Sodium 142 mmol/L (136-145)
[2021-02-05] MEDS: Acetaminophen 325 MG TAB PO PRN (05:12)
[2021-02-05] MEDS: Furosemide 40 MG/4 ML VIAL SLOW IVP SCH ×2 (05:12→13:40)
[2021-02-05 08:04] LABS: Actual Bicarbonate (HCO3a) 27.9 mEq/L (22-28); Analyzer IN Cardio ER; Base Excess (BEa) 2.2 mEq/L (-2.0 to +3.0); CO2 Tension 47.5 mmHg (35.0-45.0); Calcium, Ionized (arterial) 1.26 mmol/L (1.12-1.30); Carboxyhemoglobin (COHb) 1.3 gm% (0.0-3.0); Hemoglobin (Hb) 13.6 g/dL (14.0-18.0); O2 Tension (PaO2), arterial 62.8 mmHg (80.0-100.0); pH, Arterial 7.39 (7.35-7.45)
[2021-02-05 08:11] LABS: Puncture Site LRA
[2021-02-05 08:12] LABS: ALV-art Gradient 91.725 mmHg (0-20)
[2021-02-05] MEDS: Potassium Bicarbonate/Cit Ac 20 MEQ TAB PO SCH ×2 (08:19→16:42)
[2021-02-05] MEDS: predniSONE 20 MG TAB PO SCH (08:19)
[2021-02-05] MEDS: Magnesium Oxide 400 MG TAB PO SCH (08:33)
[2021-02-05] MEDS: Carvedilol 3.125 MG TAB PO SCH ×2 (08:33→21:39)
[2021-02-05] MEDS: FLUoxetine HCl 20 MG CAP PO SCH (08:33)
[2021-02-05] MEDS: Cefepime 1 GM in Sodium Chloride 0.9% 100 ML IVPB SCH (08:33)
[2021-02-05] MEDS: Pantoprazole 40 MG GRANULES PACKET PO SCH (08:33)
[2021-02-05] MEDS: Docusate Sodium 100 MG/10 ML UDCUP PO SCH ×2 (08:35→21:59)
[2021-02-05] MEDS ORDERED: Bisacodyl 5 MG TAB PO SCH (11:30)
[2021-02-05] MEDS: Saccharomyces boulardii 250 MG CAP PER TUBE SCH (11:52)
[2021-02-05 12:22] LABS: Bacteria/HPF None Seen HPF (None Seen); Bilirubin Negative (Negative); Blood, Urine 1+ (Negative); Clarity Turbid (Clear); Glucose, Urine (Dipstick) Normal (Negative); Ketone, Urine Negative (Negative); Leukocyte 25 Leu/uL (Negative); Nitrite Negative (Negative); Protein, Urine (Dipstick) 20 mg/dL (Neg-Trace); Specific Gravity, Urine 1.021 (1.002-1.036); Squamous Epithelial None Seen HPF (0-3)
[2021-02-05] MEDS: MEROPENEM 1 GM/50 ML 1 GM in Premix Bag 1 BAG IVPB SCH ×2 (13:39→21:59)
[2021-02-05] MEDS: VANCOMYCIN 1.75 GM/350 ML BAG 1.75 GM in Premix Bag 1 BAG IVPB SCH (15:06)
[2021-02-05] MEDS: traZODone HCl 50 MG TAB PO SCH (21:39)
[2021-02-06] MEDS: VANCOMYCIN 1.75 GM/350 ML BAG 1.75 GM in Premix Bag 1 BAG IVPB SCH ×2 (03:18→16:23)
[2021-02-06 03:41] LABS: #Eosinphils 0.2 thou/uL (0.0-0.7); #Lymphocytes 0.8 thou/uL (1.20-3.40); #Monocytes 1.3 thou/uL (0.11-0.59); #Neutrophils 10.2 thou/uL (1.40-6.50); %Basophils 0.1 % (0.0-1.0); %Eosinophils 1.8 % (0.0-10.0); %Lymphocytes 6.6 % (21.0-51.0); %Monocytes 10.3 % (0.0-10.0); %Neutrophils 81.2 % (42.0-75.0); Hemoglobin 13.6 g/dL (14.0-18.0); Mean Corpuscular HGB CONC 31.2 g/dL (32.0-36.0); Mean Corpuscular Hemoglobin 26.9 pg (27.0-31.0); Mean Corpuscular Volume 86.3 fL (78.0-98.0); Mean Platelet Volume 9.1 fL (7.4-10.4); Platelet Count 149 thou/uL (130-400); RBC Distribution Width 13.8 % (11.5-14.5); Red Blood Cell (RBC) Count 5.07 mill/uL (4.70-6.10); White Blood Cell (WBC) Count 12.5 thou/uL (4.8-10.8)
[2021-02-06 04:02] LABS: Anion Gap 11 mmol/L (10-20); BUN (Urea Nitrogen) 28 mg/dL (8.4-25.7); Calc. Creatinine Clearance 118 mL/min (70-130); Calcium 9.3 mg/dL (7.8-10.44); Carbon Dioxide 30 mmol/L (22-29); Chloride 104 mmol/L (98-107); Glucose 115 mg/dL (70-105); Potassium 3.9 mmol/L (3.5-5.1); Sodium 141 mmol/L (136-145)
[2021-02-06] MEDS: MEROPENEM 1 GM/50 ML 1 GM in Premix Bag 1 BAG IVPB SCH ×3 (05:31→21:34)
[2021-02-06] MEDS: Furosemide 40 MG/4 ML VIAL SLOW IVP SCH ×2 (05:32→13:38)
[2021-02-06] MEDS: Propofol 1,000 MG/100 ML VIAL IV PRN (06:15)
[2021-02-06 08:12] LABS: Actual Bicarbonate (HCO3a) 29.2 mEq/L (22-28); Base Excess (BEa) 6.1 mEq/L (-2.0 to +3.0); CO2 Tension 36.8 mmHg (35.0-45.0); Calcium, Ionized (arterial) 1.25 mmol/L (1.12-1.30); Carboxyhemoglobin (COHb) 1.4 gm% (0.0-3.0); Potassium - ABG Lab 3.75 mmol/L (3.70-5.30); pH, Arterial 7.52 (7.35-7.45)
[2021-02-06] MEDS: Potassium Bicarbonate/Cit Ac 20 MEQ TAB PO SCH ×2 (08:23→16:29)
[2021-02-06] MEDS: FLUoxetine HCl 20 MG CAP PO SCH (08:23)
[2021-02-06] MEDS: Magnesium Oxide 400 MG TAB PO SCH (08:23)
[2021-02-06] MEDS: Carvedilol 3.125 MG TAB PO SCH ×2 (08:24→21:35)
[2021-02-06] MEDS: predniSONE 20 MG TAB PO SCH (08:24)
[2021-02-06] MEDS: Pantoprazole 40 MG GRANULES PACKET PO SCH (08:24)
[2021-02-06] MEDS: Acetaminophen 325 MG TAB PO PRN (08:24)
[2021-02-06 08:31] LABS: O2 Tension (PaO2), arterial 57.9 mmHg (80.0-100.0); Puncture Site LRA
[2021-02-06] MEDS: Docusate Sodium 100 MG/10 ML UDCUP PO SCH ×2 (08:58→21:40)
[2021-02-06] MEDS: Lorazepam 2 MG/ML VIAL SLOW IVP PRN ×2 (10:22→22:14)
[2021-02-06] MEDS: Saccharomyces boulardii 250 MG CAP PER TUBE SCH (11:55)
[2021-02-06] MEDS ORDERED: Docusate Sodium 100 MG/10 ML UDCUP PO SCH (13:15)
[2021-02-06] MEDS ORDERED: Bisacodyl 10 MG SUPP PR SCH (13:30)
[2021-02-06] MEDS: traZODone HCl 50 MG TAB PO SCH (21:33)
[2021-02-07] MEDS: VANCOMYCIN 1.75 GM/350 ML BAG 1.75 GM in Premix Bag 1 BAG IVPB SCH ×2 (02:31→16:05)
[2021-02-07] MEDS: hydrOXYzine 25 MG TAB PO PRN ×2 (02:40→18:40)
[2021-02-07 02:58] LABS: Vancomycin, Trough 12.3 ug/mL
[2021-02-07 04:00] LABS: #Eosinphils 0.2 thou/uL (0.0-0.7); #Lymphocytes 1.4 thou/uL (1.20-3.40); #Monocytes 1.1 thou/uL (0.11-0.59); #Neutrophils 10.8 thou/uL (1.40-6.50); %Eosinophils 1.8 % (0.0-10.0); %Lymphocytes 10.6 % (21.0-51.0); %Monocytes 7.8 % (0.0-10.0); %Neutrophils 79.8 % (42.0-75.0); Hemoglobin 12.3 g/dL (14.0-18.0); Mean Corpuscular HGB CONC 31.5 g/dL (32.0-36.0); Mean Corpuscular Hemoglobin 27.3 pg (27.0-31.0); Mean Corpuscular Volume 86.5 fL (78.0-98.0); Platelet Count 172 thou/uL (130-400); RBC Distribution Width 13.4 % (11.5-14.5); Red Blood Cell (RBC) Count 4.51 mill/uL (4.70-6.10); White Blood Cell (WBC) Count 13.5 thou/uL (4.8-10.8)
[2021-02-07 04:18] LABS: Anion Gap 10 mmol/L (10-20); BUN (Urea Nitrogen) 27 mg/dL (8.4-25.7); Calc. Creatinine Clearance 154 mL/min (70-130); Calcium 9.1 mg/dL (7.8-10.44); Carbon Dioxide 33 mmol/L (22-29); Chloride 102 mmol/L (98-107); Glucose 98 mg/dL (70-105); Potassium 3.7 mmol/L (3.5-5.1); Sodium 141 mmol/L (136-145)
[2021-02-07] MEDS: MEROPENEM 1 GM/50 ML 1 GM in Premix Bag 1 BAG IVPB SCH ×3 (05:24→21:27)
[2021-02-07] MEDS: Carvedilol 3.125 MG TAB PO SCH (10:10)
[2021-02-07] MEDS: FLUoxetine HCl 20 MG CAP PO SCH (10:13)
[2021-02-07] MEDS: predniSONE 20 MG TAB PO SCH (10:16)
[2021-02-07] MEDS: Magnesium Oxide 400 MG TAB PO SCH (10:17)
[2021-02-07] MEDS: Acetaminophen 325 MG TAB PO PRN ×3 (10:19→21:30)
[2021-02-07] MEDS: Pantoprazole 40 MG GRANULES PACKET PO SCH (10:25)
[2021-02-07] MEDS: Potassium Bicarbonate/Cit Ac 20 MEQ TAB PO SCH ×2 (10:25→17:20)
[2021-02-07] MEDS ORDERED: Carvedilol 3.125 MG TAB PO SCH (10:30)
[2021-02-07] MEDS: Ipratropium Bromide 2.5 ml Neb NEB SCH ×4 (10:59→22:21)
[2021-02-07] MEDS: Docusate Sodium 100 MG/10 ML UDCUP PO SCH ×2 (13:14→21:29)
[2021-02-07] MEDS: Saccharomyces boulardii 250 MG CAP PER TUBE SCH (13:15)
[2021-02-07] MEDS: traMADol HCl 50 MG TAB PO PRN ×2 (17:48→22:48)
[2021-02-07] MEDS: Nicotine 14 MG PATCH TD SCH (21:28)
[2021-02-07] MEDS: traZODone HCl 50 MG TAB PO SCH (21:29)
[2021-02-07] MEDS: Carvedilol 6.25 MG TAB PO SCH (21:29)
[2021-02-08] MEDS: Ipratropium Bromide 2.5 ml Neb NEB SCH ×6 (02:17→22:48)
[2021-02-08] MEDS: VANCOMYCIN 1.75 GM/350 ML BAG 1.75 GM in Premix Bag 1 BAG IVPB SCH (02:22)
[2021-02-08] MEDS: hydrOXYzine 25 MG TAB PO PRN (02:22)
[2021-02-08] MEDS: MEROPENEM 1 GM/50 ML 1 GM in Premix Bag 1 BAG IVPB SCH (05:38)
[2021-02-08 06:16] VITALS: BMI 27.7
[2021-02-08 07:19] LABS: #Eosinphils 0.4 thou/uL (0.0-0.7); #Lymphocytes 1.8 thou/uL (1.20-3.40); #Neutrophils 11.8 thou/uL (1.40-6.50); %Basophils 0.2 % (0.0-1.0); %Eosinophils 2.4 % (0.0-10.0); %Lymphocytes 12.2 % (21.0-51.0); %Monocytes 6.6 % (0.0-10.0); %Neutrophils 78.6 % (42.0-75.0); Hemoglobin 12.3 g/dL (14.0-18.0); Mean Corpuscular HGB CONC 30.6 g/dL (32.0-36.0); Mean Corpuscular Hemoglobin 26.3 pg (27.0-31.0); Mean Corpuscular Volume 85.9 fL (78.0-98.0); Mean Platelet Volume 8.7 fL (7.4-10.4); Platelet Count 218 thou/uL (130-400); RBC Distribution Width 13.4 % (11.5-14.5); Red Blood Cell (RBC) Count 4.68 mill/uL (4.70-6.10)
[2021-02-08 07:34] LABS: Anion Gap 10 mmol/L (10-20); BUN (Urea Nitrogen) 21 mg/dL (8.4-25.7); Calc. Creatinine Clearance 157 mL/min (70-130); Calcium 8.9 mg/dL (7.8-10.44); Carbon Dioxide 28 mmol/L (22-29); Chloride 106 mmol/L (98-107); Glucose 86 mg/dL (70-105); Potassium 3.6 mmol/L (3.5-5.1); Sodium 140 mmol/L (136-145)
[2021-02-08] MEDS: Carvedilol 6.25 MG TAB PO SCH ×2 (08:21→20:46)
[2021-02-08] MEDS: Potassium Bicarbonate/Cit Ac 20 MEQ TAB PO SCH ×2 (08:22→16:56)
[2021-02-08] MEDS: Cefdinir 300 MG CAP PO SCH (08:22)
[2021-02-08] MEDS: predniSONE 20 MG TAB PO SCH (08:22)
[2021-02-08] MEDS: Magnesium Oxide 400 MG TAB PO SCH (08:22)
[2021-02-08] MEDS: FLUoxetine HCl 20 MG CAP PO SCH (08:22)
[2021-02-08] MEDS: Pantoprazole 40 MG GRANULES PACKET PO SCH (08:22)
[2021-02-08] MEDS: Docusate Sodium 100 MG/10 ML UDCUP PO SCH ×2 (08:23→21:56)
[2021-02-08] MEDS: traMADol HCl 50 MG TAB PO PRN ×2 (08:26→17:24)
[2021-02-08] MEDS: Saccharomyces boulardii 250 MG CAP PER TUBE SCH (13:20)
[2021-02-08] MEDS: traZODone HCl 50 MG TAB PO SCH (20:47)
[2021-02-08] MEDS: Nicotine 14 MG PATCH TD SCH (20:48)
[2021-02-08] MEDS: Acetaminophen 325 MG TAB PO PRN (20:52)
[2021-02-08] MEDS: Mometasone 200 MCG/Formoterol 5 MCG 120 PUFF INHALER INH SCH (21:54)
[2021-02-09 06:47] LABS: #Eosinphils 0.2 thou/uL (0.0-0.7); #Lymphocytes 1.9 thou/uL (1.20-3.40); #Monocytes 1.1 thou/uL (0.11-0.59); #Neutrophils 10.5 thou/uL (1.40-6.50); %Basophils 0.1 % (0.0-1.0); %Eosinophils 1.8 % (0.0-10.0); %Neutrophils 76.2 % (42.0-75.0); Hemoglobin 12.7 g/dL (14.0-18.0); Mean Corpuscular Hemoglobin 27.6 pg (27.0-31.0); Mean Corpuscular Volume 86.3 fL (78.0-98.0); Mean Platelet Volume 8.7 fL (7.4-10.4); Platelet Count 210 thou/uL (130-400); RBC Distribution Width 13.4 % (11.5-14.5); Red Blood Cell (RBC) Count 4.59 mill/uL (4.70-6.10); White Blood Cell (WBC) Count 13.8 thou/uL (4.8-10.8)
[2021-02-09 07:04] LABS: Anion Gap 10 mmol/L (10-20); BUN (Urea Nitrogen) 18 mg/dL (8.4-25.7); Calc. Creatinine Clearance 162 mL/min (70-130); Calcium 9.9 mg/dL (7.8-10.44); Carbon Dioxide 31 mmol/L (22-29); Chloride 105 mmol/L (98-107); Glucose 101 mg/dL (70-105); Potassium 3.9 mmol/L (3.5-5.1); Sodium 142 mmol/L (136-145)
[2021-02-09] MEDS: Ipratropium Bromide 2.5 ml Neb NEB SCH ×6 (07:56→23:55)
[2021-02-09] MEDS: Mometasone 200 MCG/Formoterol 5 MCG 120 PUFF INHALER INH SCH ×2 (07:57→19:27)
[2021-02-09] MEDS: Cefdinir 300 MG CAP PO SCH (08:21)
[2021-02-09] MEDS: Pantoprazole 40 MG GRANULES PACKET PO SCH (08:21)
[2021-02-09] MEDS: predniSONE 20 MG TAB PO SCH (08:21)
[2021-02-09] MEDS: Carvedilol 6.25 MG TAB PO SCH ×2 (08:21→20:19)
[2021-02-09] MEDS: Potassium Bicarbonate/Cit Ac 20 MEQ TAB PO SCH ×2 (08:21→16:53)
[2021-02-09] MEDS: Docusate Sodium 100 MG/10 ML UDCUP PO SCH ×2 (08:22→20:19)
[2021-02-09] MEDS: Magnesium Oxide 400 MG TAB PO SCH (08:22)
[2021-02-09] MEDS: FLUoxetine HCl 20 MG CAP PO SCH (08:22)
[2021-02-09] MEDS: Saccharomyces boulardii 250 MG CAP PER TUBE SCH (12:15)
[2021-02-09] MEDS: traZODone HCl 50 MG TAB PO SCH (20:18)
[2021-02-09] MEDS: traMADol HCl 50 MG TAB PO PRN (20:19)
[2021-02-09] MEDS: hydrOXYzine 25 MG TAB PO PRN (20:27)
[2021-02-09] MEDS: Nicotine 14 MG PATCH TD SCH (20:27)
[2021-02-10] MEDS: Ipratropium Bromide 2.5 ml Neb NEB SCH ×4 (03:28→13:43)
[2021-02-10] MEDS: Potassium Bicarbonate/Cit Ac 20 MEQ TAB PO SCH (07:53)
[2021-02-10] MEDS: Cefdinir 300 MG CAP PO SCH (07:53)
[2021-02-10] MEDS: Pantoprazole 40 MG GRANULES PACKET PO SCH (07:53)
[2021-02-10] MEDS: Magnesium Oxide 400 MG TAB PO SCH (07:53)
[2021-02-10] MEDS: FLUoxetine HCl 20 MG CAP PO SCH (07:53)
[2021-02-10] MEDS: Carvedilol 6.25 MG TAB PO SCH (07:53)
[2021-02-10] MEDS: Mometasone 200 MCG/Formoterol 5 MCG 120 PUFF INHALER INH SCH (07:54)
[2021-02-10] MEDS: predniSONE 20 MG TAB PO SCH (07:54)
[2021-02-10] MEDS: Docusate Sodium 100 MG/10 ML UDCUP PO SCH (07:54)
[2021-02-10 08:20] LABS: #Eosinphils 0.2 thou/uL (0.0-0.7); #Neutrophils 9.8 thou/uL (1.40-6.50); %Basophils 0.3 % (0.0-1.0); %Eosinophils 1.4 % (0.0-10.0); %Lymphocytes 15.2 % (21.0-51.0); %Monocytes 7.6 % (0.0-10.0); %Neutrophils 75.6 % (42.0-75.0); Hemoglobin 12.4 g/dL (14.0-18.0); Mean Corpuscular HGB CONC 32.1 g/dL (32.0-36.0); Mean Corpuscular Hemoglobin 27.6 pg (27.0-31.0); Mean Platelet Volume 8.5 fL (7.4-10.4); Platelet Count 198 thou/uL (130-400); RBC Distribution Width 13.5 % (11.5-14.5); Red Blood Cell (RBC) Count 4.48 mill/uL (4.70-6.10); White Blood Cell (WBC) Count 12.9 thou/uL (4.8-10.8)
[2021-02-10 08:38] LABS: Anion Gap 11 mmol/L (10-20); BUN (Urea Nitrogen) 15 mg/dL (8.4-25.7); Calc. Creatinine Clearance 157 mL/min (70-130); Calcium 9.6 mg/dL (7.8-10.44); Carbon Dioxide 30 mmol/L (22-29); Chloride 104 mmol/L (98-107); Glucose 90 mg/dL (70-105); Potassium 4.4 mmol/L (3.5-5.1); Sodium 141 mmol/L (136-145)
[2021-02-10 08:38] LABS: Anion Gap 11 mmol/L (10-20); BUN (Urea Nitrogen) 15 mg/dL (8.4-25.7); Calc. Creatinine Clearance 152 mL/min (70-130); Calcium 9.8 mg/dL (7.8-10.44); Carbon Dioxide 30 mmol/L (22-29); Chloride 104 mmol/L (98-107); Glucose 91 mg/dL (70-105); Potassium 4.3 mmol/L (3.5-5.1); Sodium 141 mmol/L (136-145)
[2021-02-10] MEDS: traMADol HCl 50 MG TAB PO PRN (11:21)
[2021-02-10] MEDS: Saccharomyces boulardii 250 MG CAP PER TUBE SCH (11:22)
[2021-02-10 15:07] VITALS: BP 118/75; TEMP 97.8
== END 2021-02-10 16:12 | DRG 870 ==
LOC: EDBD 17:27 → ERS 17:27 → CCU 20:02 → T4-B 02-08 14:05
PROVIDERS: ADMIT Internal Medicine; ATTEND Internal Medicine
PROC: 0BH17EZ Insertion of Endotracheal Airway into Trachea, Via Natural or Artificial Opening (ICD-10-PCS; principal; 2021-01-28)
PROC: 5A1945Z Respiratory Ventilation, 24-96 Consecutive Hours (ICD-10-PCS; 2021-01-28)
PROC: 5A09357 Assistance with Respiratory Ventilation, Less than 24 Consecutive Hours, Continuous Positive Airway Pressure (ICD-10-PCS; 2021-01-28)
PROC: 5A1955Z Respiratory Ventilation, Greater than 96 Consecutive Hours (ICD-10-PCS; 2021-02-01)
PROC: 0BH18EZ Insertion of Endotracheal Airway into Trachea, Via Natural or Artificial Opening Endoscopic (ICD-10-PCS; 2021-02-01)
PROC: 0B9F8ZZ Drainage of Right Lower Lung Lobe, Via Natural or Artificial Opening Endoscopic (ICD-10-PCS; 2021-02-01)
PROC: 0B9L8ZZ Drainage of Left Lung, Via Natural or Artificial Opening Endoscopic (ICD-10-PCS; 2021-02-01)
PROC: 0B9C8ZZ Drainage of Right Upper Lung Lobe, Via Natural or Artificial Opening Endoscopic (ICD-10-PCS; 2021-02-01)
PROC: 0B918ZZ Drainage of Trachea, Via Natural or Artificial Opening Endoscopic (ICD-10-PCS; 2021-02-01)
PROC: 0B9D8ZZ Drainage of Right Middle Lung Lobe, Via Natural or Artificial Opening Endoscopic (ICD-10-PCS; 2021-02-01)
DX: A41.9 Sepsis, unspecified organism (principal); J96.01 Acute respiratory failure with hypoxia; J96.02 Acute respiratory failure with hypercapnia; J44.1 Chronic obstructive pulmonary disease with (acute) exacerbation; K92.1 Melena; G93.40 Encephalopathy, unspecified; K56.7 Ileus, unspecified; I42.9 Cardiomyopathy, unspecified; I50.42 Chronic combined systolic (congestive) and diastolic (congestive) heart failure; I11.0 Hypertensive heart disease with heart failure; R65.20 Severe sepsis without septic shock; I25.10 Atherosclerotic heart disease of native coronary artery without angina pectoris; F15.11 Other stimulant abuse, in remission; F17.200 Nicotine dependence, unspecified, uncomplicated; F12.10 Cannabis abuse, uncomplicated; E87.6 Hypokalemia; F41.9 Anxiety disorder, unspecified; J40 Bronchitis, not specified as acute or chronic; K59.00 Constipation, unspecified; I25.2 Old myocardial infarction; Z86.19 Personal history of other infectious and parasitic diseases; Z79.51 Long term (current) use of inhaled steroids; Z79.899 Other long term (current) drug therapy; Z95.810 Presence of automatic (implantable) cardiac defibrillator; Z95.2 Presence of prosthetic heart valve; Z78.1 Physical restraint status; Z20.822 Contact with and (suspected) exposure to COVID-19
CPT/HCPCS: 0240U; 31500; 31624; 36415; 36416; 36600; 51702; 70450; 71045; 71275; 74018; 80048; 80053; 80202; 81001; 81003; 81015; 82274; 82550; 82805; 83605; 83880; 84484; 85025; 87040; 87070; 87086; 87205; 89220; 93005; 93306; 94002; 94003; 94640; 94644; 94660; 96365; 96366; 96367; 96375; J0456; J0692; J0696; J1940; J2060; J2185; J2250; J2270; J2704; J2920; J3010; J3370; J3475; J3480; J3490; J7512; J7611; J7620; J7626; Q9967